=== PATIENT | female | born 1975 | race Asian ===

== ENCOUNTER 2017-07-22 13:45 | Emergency (ER) | payer OTHER ==
[~2017-07-22] VITALS: Ht 170.2 cm; Wt 89.8 kg
[2017-07-22 17:15] VITALS: BP 121/83
== END 2017-07-22 17:15 | disposition home or self-care (01) ==
LOC: ED 13:45
DX: S93.402A Sprain of unspecified ligament of left ankle, initial encounter (principal); M79.89 Other specified soft tissue disorders; X58.XXXA Exposure to other specified factors, initial encounter; Y93.89 Activity, other specified; Y99.8 Other external cause status; Y92.89 Other specified places as the place of occurrence of the external cause
CPT/HCPCS: Q0092

== ENCOUNTER 2018-01-04 08:33 | Inpatient (IN) | payer OTHER ==
[~2018-01-04] VITALS: Ht 170.2 cm; Wt 88.5 kg
[2018-01-04 08:38] VITALS: Ht 170.2 cm; Wt 88.5 kg
[2018-01-04 09:13] LABS: BASOPHIL % 0.4 % (0-2); PLATELET COUNT 199 x10^3mcL (130-400); RED CELL DISTRIBUTION WIDTH 13.4 % (11.5-14.5)
[2018-01-04 09:17] LABS: CALCIUM 8.9 mg/dL (8.5-10.1); CARBON DIOXIDE 26.5 mmol/L (21-32); CHLORIDE SERUM 105 mmol/L (98-107); CREATININE SERUM 0.6 mg/dL (0.6-1.0); GFR1 > 60 mL/min; GLUCOSE SERUM 98 mg/dL (74-106); POTASSIUM SERUM 3.3 mmol/L (3.5-5.1); SODIUM SERUM 142 mmol/L (136-145)
[2018-01-04 09:25] LABS: microscopic required? YES; urine erythrocyte 3+ (NEGATIVE)
[2018-01-04 11:26] LABS: MAGNESIUM 2.1 mg/dL (1.8-2.4); PHOSPHOROUS 3.3 mg/dL (2.5-4.9)
[2018-01-04 11:28] LABS: FREE T4 0.99 ng/dL (0.76-1.46); FREE THYROXINE INDEX 2.2 ug/dL (1.4-4.5); T4(THYROXINE) 6.8 ug/dL (4.7-13.3)
[2018-01-04 11:34] LABS: T3 TOTAL 0.99 ng/mL
[2018-01-04 11:49] LABS: CHOLESTEROL/HDL RATIO 5.2
[2018-01-04 12:03] VITALS: BP 151/86
[2018-01-04 14:34] LABS: AMPHETAMINE QUAL UR NONE DETECTED (NEG <=1000)
[2018-01-04 17:46] VITALS: BP 125/83
[2018-01-04 20:06] VITALS: BP 128/80
[2018-01-05 05:19] VITALS: BP 103/72
[2018-01-05 07:18] LABS: CALCIUM 8.6 mg/dL (8.5-10.1); CARBON DIOXIDE 24.7 mmol/L (21-32); CHLORIDE SERUM 106 mmol/L (98-107); CREATININE SERUM 0.7 mg/dL (0.6-1.0); GFR1 > 60 mL/min; GLUCOSE SERUM 91 mg/dL (74-106); POTASSIUM SERUM 3.9 mmol/L (3.5-5.1); SODIUM SERUM 142 mmol/L (136-145)
[2018-01-05 07:25] LABS: BASOPHIL % 0.7 % (0-2); PLATELET COUNT 185 x10^3mcL (130-400); RED CELL DISTRIBUTION WIDTH 13.2 % (11.5-14.5)
[2018-01-05 07:43] VITALS: BP 114/77
[2018-01-05 12:45] VITALS: BP 143/92
[2018-01-05 16:35] VITALS: BP 125/80
[2018-01-05] MEDS ORDERED: LIPI10 PO (18:56)
[2018-01-05] MEDS ORDERED: KEFLEX500 M1 PO (18:57)
[2018-01-05 20:24] VITALS: BP 135/92
[2018-01-05 21:24] VITALS: BP 135/92
== END 2018-01-05 22:25 | disposition home or self-care (01) | DRG 779 ==
LOC: ED 08:33 → DU 10:37
PROVIDERS: Emergency Medicine; Family Medicine
PROC: 3E023GC Introduction of Other Therapeutic Substance into Muscle, Percutaneous Approach (ICD-10-PCS; principal; 2018-01-05)
DX: O03.4 Incomplete spontaneous abortion without complication (principal); N17.0 Acute kidney failure with tubular necrosis; N39.0 Urinary tract infection, site not specified; E78.5 Hyperlipidemia, unspecified; R31.9 Hematuria, unspecified
CPT/HCPCS: 83880; 84439; J0696; J3490; J7030; J9260; Q0092; Q9967